=== PATIENT | male | born 1950 | race Caucasian/White ===

== ENCOUNTER 2017-02-22 11:06 | Emergency (ER) | payer MEDICARE ==
[~2017-02-22] VITALS: Ht 185.4 cm; Wt 115.0 kg
[~2017-02-22 11:06] MED LIST: COUM1TAB PO; ZOLP10TA3 OR
[2017-02-22 11:09] VITALS: BP 148/68; PULSE 84; RESP 24; TEMP 98.3; O2SAT 97
--- NOTE | 2017-02-22 11:22 | PD ---
HPI Chief Complaint: Respiratory Symptoms Time Seen by Provider: 11:22 Travel History International Travel<30 days: No Contact w/Intl Traveler<30days: No Traveled to known affect area: No History of Present Illness HPI 67-year-old male came to the emergency room with his because he's been short of breath. Patient said the shortness of breath started last night. He had an ablation for his A. fib done at [facility] yesterday by Dr. Weinberg. However since he lives closer to [place] who recommended that he should come to [facility] emergency room. No history of chest pain. Patient said last night and took his son's inhaler after which she felt little better. No history of fever or chills. No history of cough. He said he got short of breath upon ambulation and has been taking shallow breaths. His vitals were relatively stable. Patient says he needs Lasix. He is not on Lasix at home. [facility] Past Medical History Narrative Medical List of his past medical, surgical, social and family history is reviewed from the nursing note. Depression: Yes Cancer: No Cardiovascular Problems: Yes (a-fib) Diabetes: No Diminished Hearing: No Endocrine: No GERD: Yes Genitourinary: No Hepatitis: No Hiatal Hernia: No Immune Disorder: No Musculoskeletal: Yes (neck issues with the chiropractor) Neurologic: No Psychiatric: No Reproductive: No Respiratory: No Thyroid Disease: No Past Surgical History Abdominal Surgery: Yes (duodenal polyops) AICD: No Body Medical Devices: hardware left foot arch area Joint Replacement: No Pacemaker: No Social History Alcohol Use: Yes (DAILY GLASS OF WINE) Tobacco Use: No Substance Use: No Allergies-Medications (Allergen,Severity, Reaction): Coded Allergies: No Known Allergies (Verified , 02/22/17) Comments No known drug allergies. Reported Meds & Prescriptions Reported Meds & Active Scripts Active Potassium Chloride ER (Potassium Chloride) 20 Meq Tab 20 Meq PO BID Lasix (Furosemide) 40 Mg Tab 40 Mg PO DAILY Reported Coumadin 1 mg (Warfarin Sodium) Warfarin Sodium 1 mg Tab 5 Mg PO BID last dose was november 11 Zolpidem Tartrate 10 Mg Tab 10 Mg OR HS Narrative Medication List of his home medications reviewed from the nursing note. Review of Systems Except as stated in HPI: all other systems reviewed are Neg Physical Exam Narrative GENERAL: Awake, alert, moderate distress SKIN: Focused skin assessment warm/dry. HEAD: Atraumatic. Normocephalic. EYES: Pupils equal and round. No scleral icterus. No injection or drainage. ENT: No nasal bleeding or discharge. Mucous membranes pink and moist. NECK: Trachea midline. No JVD. CARDIOVASCULAR: Regular rate and rhythm. No murmur appreciated. RESPIRATORY: Tachypnea. Clear to auscultation. Breath sounds equal bilaterally. GASTROINTESTINAL: Abdomen soft, non-tender, nondistended. Hepatic and splenic margins not palpable. MUSCULOSKELETAL: No obvious deformities. No clubbing. No cyanosis. No edema. NEUROLOGICAL: Awake and alert. No obvious cranial nerve deficits. Motor grossly within normal limits. Mild bilateral pedal edema PSYCHIATRIC: Appropriate mood and affect; insight and judgment normal. Data Data Last Documented VS Orders Orders Complete Blood Count With Diff (02/22/17 11:29) Basic Metabolic Panel (Bmp) (02/22/17 11:29) B-Type Natriuretic Peptide (02/22/17 11:29) Iv Access Insert/Monitor (02/22/17 11:29) Electrocardiogram (02/22/17 11:29) Ecg Monitoring (02/22/17 11:29) Oximetry (02/22/17 11:29) Oxygen Administration (02/22/17 11:29) Chest, Single Ap (02/22/17 11:29) Sodium Chloride 0.9% Flush (Ns Flush) (02/22/17 11:30) Furosemide Inj (Lasix Inj) (02/22/17 13:00) Potassium Chloride (Kcl) (02/22/17 13:45) Labs Laboratory Tests Test 02/22/17 11:50 White Blood Count 12.5 TH/MM3 Red Blood Count 3.64 MIL/MM3 Hemoglobin 13.7 GM/DL Hematocrit 39.9 % Mean Corpuscular Volume 109.6 FL Mean Corpuscular Hemoglobin 37.8 PG Mean Corpuscular Hemoglobin Concent 34.4 % Red Cell Distribution Width 15.2 % Platelet Count 137 TH/MM3 Mean Platelet Volume 7.9 FL Neutrophils (%) (Auto) 72.9 % Lymphocytes (%) (Auto) 10.9 % Monocytes (%) (Auto) 16.0 % Eosinophils (%) (Auto) 0.1 % Basophils (%) (Auto) 0.1 % Neutrophils # (Auto) 9.1 TH/MM3 Lymphocytes # (Auto) 1.4 TH/MM3 Monocytes # (Auto) 2.0 TH/MM3 Eosinophils # (Auto) 0.0 TH/MM3 Basophils # (Auto) 0.0 TH/MM3 CBC Comment DIFF FINAL Differential Comment Blood Urea Nitrogen 13 MG/DL Creatinine 1.16 MG/DL Random Glucose 102 MG/DL Calcium Level 8.4 MG/DL Sodium Level 134 MEQ/L Potassium Level 3.0 MEQ/L Chloride Level 100 MEQ/L Carbon Dioxide Level 23.9 MEQ/L Anion Gap 10 MEQ/L Estimat Glomerular Filtration Rate 63 ML/MIN B-Type Natriuretic Peptide 279 PG/ML MDM Medical Decision Making Medical Screen Exam Complete: Yes Emergency Medical Condition: Yes Medical Record Reviewed: Yes Interpretation(s) Twelve-lead EKG was reviewed by me. Atrial fibrillation, left axis deviation, controlled rate. Heart rate of 80 bpm. Differential Diagnosis Congestive heart failure, pleural effusion, pneumonia Narrative Course 2:21 PM blood test results of back and within acceptable limit. Chest x-rays was suggestive of some pulmonary edema. Patient was given IV Lasix. I discussed the case with Dr. Ascencio who was okay discharging the patient home if the patient is comfortable on Lasix and have him follow-up with his senior director insight on Friday. As this with the patient and he is comfortable going home. I'll discharge him home. His potassium was low which has been replaced. Procedures EKG Prior to Arrival: No Diagnosis Primary Impression: Congestive heart failure Qualified Codes: I50.9 - Heart failure, unspecified Additional Impressions: Persistent atrial fibrillation Hypokalemia Referrals: Edmundo Weinberg MD 3 days Additional Instructions: Please follow-up with Dr. Weinberg on Friday in his office. Take the medication as per the prescription direction. Return to the ER if the condition worsens or any other new concerns. Med/Other Pt SpecificInfo: Prescription(s) given Scripts Potassium Chloride ER (Potassium Chloride ER) 20 Meq Tab 20 MEQ PO BID for Electrolyte Replacement, #14 TAB 0 Refills Prov: Gunnar Kang MD 02/22/17 Furosemide (Lasix) 40 Mg Tab 40 MG PO DAILY, #7 TAB 0 Refills Prov: Gunnar Kang MD 02/22/17 Disposition: 01 DISCHARGE HOME Condition: Stable Gunnar Kang MD Feb 22, 2017 11:22
[2017-02-22] MEDS ORDERED: SODIUM CHLORIDE 0.9% FLUSH 10 ML FLUSH IVF PRN (11:30)
--- NOTE | 2017-02-22 12:31 | RADRPT ---
EXAM DATE/TIME: 02/22/2017 12:02 [place] COMPARISON: CHEST SINGLE AP, October 10, 2014, 11:34. INDICATIONS : Shortness of breath post cardiac ablation. MEDICAL HISTORY : Atrial fibrillation. SURGICAL HISTORY : Cardiac ablation 02/20/17. ENCOUNTER: Initial ACUITY: 1 day PAIN SCORE: 0/10 LOCATION: Bilateral chest FINDINGS: Portable AP view of the chest demonstrates a normal size cardiac silhouette. There is mild interstiti al prominence in the lung bases bilaterally with good inspiration. No pleural effusion or pneumothora x identified. Bones and soft tissues demonstrate no acute finding. EKG lines overlie the patient. CONCLUSION: Mild interstitial opacities in the lower lung zones bilaterally. This could represent nterstitial pul monary edema in the appropriate clinical setting. Warren Buckley MD on February 22, 2017 at 12:28 Board Certified Radiologist. This report was verified electronically.
[2017-02-22 12:35] LABS: AUTOMATED NEUTROPHIL # 9.1 TH/MM3 (1.8-7.7); BASOPHIL % 0.1 % (0.0-2.0); EOSINOPHIL % 0.1 % (0.0-4.0); HEMATOCRIT 39.9 % (39.0-51.0); HEMO FLAGS DIFF FINAL; LYMPH % 10.9 % (9.0-44.0); LYMPHOCYTE # 1.4 TH/MM3 (1.0-4.8); MEAN CELL VOLUME 109.6 FL (80.0-100.0); MEAN CORPUSCULAR HEMOGLOBIN 37.8 PG (27.0-34.0); MEAN CORPUSCULAR HGB CONC 34.4 % (32.0-36.0); NEUT % 72.9 % (16.0-70.0); PLATELET COUNT 137 TH/MM3 (150-450); RED BLOOD COUNT 3.64 MIL/MM3 (4.50-5.90); RED CELL DISTRIBUTION WIDTH 15.2 % (11.6-17.2); WHITE BLOOD COUNT 12.5 TH/MM3 (4.0-11.0)
[2017-02-22 12:54] LABS: BICARBONATE 23.9 MEQ/L (21.0-32.0)
[2017-02-22] MEDS ORDERED: FUROSEMIDE 40 MG/4 ML VIAL IV PUSH ONE (13:00)
[2017-02-22] MEDS ORDERED: POTASSIUM CHLORIDE 20 MEQ CONTROLLED RELEASE TAB PO ONE (13:45)
[2017-02-22] MEDS ORDERED: FURO1TAB60 PO (14:16)
[2017-02-22] MEDS ORDERED: POTA-163 PO (14:17)
--- NOTE | 2017-02-23 13:28 | EKG ---
Date Performed: 02/22/2017 Time Performed: 11:42:29 PTAGE: 67 years EKG: There is a first degree AV block with a PA interval of 0.40. There appears to be intermitte nt sinoatrial block with dropped P-waves. Minor nonspecific T-wave changes Sabael borderline leftward PREVIOUS TRACING : 10/10/2014 11.14 Since previous tracing, rhythm has changed from atria l fibrillation to Sinus rhythm but there is intermittent sinoatrial block. DOCTOR: Jarvis Merchant Interpretating Date/Time 02/23/2017 13:27:06
== END 2017-02-22 14:59 | disposition home or self-care (01) ==
LOC: NEPC 11:06
DX: I50.9 Heart failure, unspecified (principal); I48.1 Persistent atrial fibrillation; E87.6 Hypokalemia; R94.31 Abnormal electrocardiogram [ECG] [EKG]
CPT/HCPCS: 71010; 80048; 83880; 85025; 93005; 96374; 99285; J1940

== ENCOUNTER 2017-08-20 11:11 | Emergency (ER) | payer MEDICARE ==
[~2017-08-20] VITALS: Ht 185.4 cm; Wt 112.5 kg
[~2017-08-20 11:11] MED LIST changes: +FURO1TAB60 PO; +POTA-163 PO
[2017-08-20 11:16] VITALS: BP 147/67; PULSE 93; RESP 16; TEMP 98.3; O2SAT 98
[2017-08-20] MEDS ORDERED: ZOLP10TA3 PO (11:25)
[2017-08-20] MEDS ORDERED: [UNRECOGNIZED DRUG - OTHER] PO (11:25)
[2017-08-20] MEDS ORDERED: BENZ100 PO (11:46)
[2017-08-20] MEDS ORDERED: PRED20 PO (11:46)
[2017-08-20] MEDS ORDERED: VENTAER INH (11:46)
[2017-08-20] MEDS ORDERED: AZIT250T3 PO (11:46)
--- NOTE | 2017-08-20 11:46 | PD ---
HPI Chief Complaint: Cold / Flu Symptoms Time Seen by Provider: 11:37 Travel History International Travel<30 days: No Contact w/Intl Traveler<30days: No Traveled to known affect area: No History of Present Illness HPI Is a 67-year-old male here with productive cough 1 week. He denies fever or chills. He reports colored sputum. Symptom severity is moderate. No aggravating or alleviating factors. Similar symptoms in the past with bronchitis. PFSH Past Medical History Atrial Fibrillation: Yes (Ablation ) Depression: Yes Cancer: No Cardiovascular Problems: Yes (a-fib) Diabetes: No Diminished Hearing: No Endocrine: No Gastrointestinal Disorders: Yes (hx of one duodenal ulcer) GERD: Yes Genitourinary: No Hepatitis: No Hiatal Hernia: No Immune Disorder: No Musculoskeletal: Yes (neck issues with the chiropractor) Neurologic: No Psychiatric: No Reproductive: No Respiratory: No Thyroid Disease: No Tetanus Vaccination: > 5 Years Influenza Vaccination: No Past Surgical History Abdominal Surgery: Yes (duodenal polyops) AICD: No Body Medical Devices: hardware left foot arch area Joint Replacement: Yes (right hip) Pacemaker: No Other Surgery: Yes (left foot arch repair) Social History Alcohol Use: Yes (COUPLE GLASSES OF WINE DAILY) Tobacco Use: No Substance Use: No Allergies-Medications (Allergen,Severity, Reaction): Coded Allergies: No Known Allergies (Verified Adverse Reaction, Unknown, 08/20/17) Reported Meds & Prescriptions Reported Meds & Active Scripts Active Reported [beyond biotic] 1 Tab PO DAILY Zolpidem (Zolpidem Tartrate) 10 Mg Tab 10 Mg PO HS PRN Review of Systems Except as stated in HPI: all other systems reviewed are Neg General / Constitutional: No: Fever Eyes: No: Visual changes HENT: No: Headaches Cardiovascular: No: Chest Pain or Discomfort Respiratory: Positive: Cough Gastrointestinal: No: Abdominal Pain Genitourinary: No: Dysuria Physical Exam Narrative GENERAL: Alert well-appearing 67-year-old male SKIN: Warm and dry. HEAD: Normocephalic. EYES: No injection or drainage. NECK: Supple, trachea midline. CARDIOVASCULAR: Regular rate and rhythm RESPIRATORY: Breath sounds equal bilaterally. No accessory muscle use. Rhonchorous cough GASTROINTESTINAL: Abdomen soft, non-tender, nondistended. MUSCULOSKELETAL: No cyanosis, or edema. BACK: Nontender without obvious deformity. No CVA tenderness. Data Data Last Documented VS Vital Signs Date Time Temp Pulse Resp B/P (MAP) Pulse Ox O2 Delivery O2 Flow Rate FiO2 08/20/17 11:16 98.3 93 16 147/67 (93) 98 MDM Medical Decision Making Medical Screen Exam Complete: Yes Emergency Medical Condition: Yes Differential Diagnosis Bronchitis, pneumonia, URI Narrative Course 67-year-old male here with bronchitis. He is well-appearing. Vital signs are stable Diagnosis Primary Impression: Bronchitis Referrals: Primary Care Physician Additional Instructions: Medication as directed Stay well hydrated Follow up with her primary doctor Scripts Benzonatate (Tessalon Perles) 100 Mg Cap 200 MG PO TID Y for COUGH, #12 CAP 0 Refills Prov: Chelsea Padgett 08/20/17 Albuterol 18 GM Inh (Ventolin Hfa 18 GM Inh) 90 Mcg/Act Aer 2 PUFF INH Q4-6H Y for SHORTNESS OF BREATH, #1 INHALER 0 Refills Prov: Chelsea Padgett 08/20/17 Prednisone (Prednisone) 20 Mg Tab 40 MG PO DAILY, #10 TAB 0 Refills Take 40 mg (2 tablets) daily for 5 days Prov: Chelsea Padgett 08/20/17 Azithromycin (Azithromycin) 250 Mg Tab 250 MG PO DIRECTED for Infection, #6 TAB 0 Refills Take 2 tabs (500 mg) on day 1 then 1 tab daily x 4 days. Prov: Chelsea Padgett 08/20/17 Disposition: 01 DISCHARGE HOME Condition: Stable Chelsea Padgett Aug 20, 2017 11:46
== END 2017-08-20 11:52 | disposition home or self-care (01) ==
LOC: PHEFT 11:11
DX: J40 Bronchitis, not specified as acute or chronic (principal); I48.91 Unspecified atrial fibrillation; F32.9 Major depressive disorder, single episode, unspecified; K21.9 Gastro-esophageal reflux disease without esophagitis; Z79.899 Other long term (current) drug therapy
CPT/HCPCS: 99284

== ENCOUNTER 2017-10-07 10:16 | Emergency (ER) | payer MEDICARE ==
[2017-10-07] MEDS ORDERED: SODIUM CHLORIDE 0.9% FLUSH 10 ML FLUSH IVF (10:45)
[2017-10-07] MEDS: RESP: ALBUTEROL 2.5 MG/IPRATROPIUM 0.5 MG NEB (SCH) INH ×2 (10:48→10:50)
[2017-10-07] MEDS: methylPREDNISolone SOD SUCC 125 MG/2 ML VIAL IV PUSH (11:26)
[2017-10-07 11:33] LABS: AUTOMATED NEUTROPHIL # 4.9 TH/MM3 (1.8-7.7); BASOPHIL # 0.1 TH/MM3 (0-0.2); BASOPHIL % 1.3 % (0.0-2.0); EOSINOPHIL % 0.2 % (0.0-4.0); HEMATOCRIT 35.9 % (39.0-51.0); HEMO FLAGS DIFF FINAL; HEMOGLOBIN 12.2 GM/DL (13.0-17.0); LYMPH % 18.9 % (9.0-44.0); LYMPHOCYTE # 1.4 TH/MM3 (1.0-4.8); MEAN CELL VOLUME 103.2 FL (80.0-100.0); MEAN PLATELET VOLUME 8.2 FL (7.0-11.0); MONOCYTE # 0.8 TH/MM3 (0-0.9); NEUT % 68.6 % (16.0-70.0); PLATELET COUNT 106 TH/MM3 (150-450); RED BLOOD COUNT 3.48 MIL/MM3 (4.50-5.90); RED CELL DISTRIBUTION WIDTH 14.5 % (11.6-17.2); WHITE BLOOD COUNT 7.2 TH/MM3 (4.0-11.0)
[2017-10-07 12:23] LABS: CHLORIDE 96 MEQ/L (98-107); SODIUM (NA) 132 MEQ/L (136-145)
[2017-10-07 12:24] LABS: POTASSIUM 3.2 MEQ/L (3.5-5.1)
[2017-10-07 12:26] LABS: CALCIUM 8.4 MG/DL (8.5-10.1)
[2017-10-07 12:27] LABS: ALBUMIN 2.7 GM/DL (3.4-5.0); ANION GAP 14 MEQ/L (5-15); BICARBONATE 22.2 MEQ/L (21.0-32.0); BLOOD UREA NITROGEN 6 MG/DL (7-18); GLUCOSE,RANDOM 116 MG/DL (74-106)
[2017-10-07 12:30] LABS: ALT (GPT) 75 U/L (12-78); AST (GOT) 211 U/L (15-37); GLOMERULAR FILTRATION RATE 67 ML/MIN (>89)
[2017-10-07 12:32] LABS: TOTAL BILIRUBIN ADULT 2.6 MG/DL (0.2-1.0); TOTAL PROTEIN 8.3 GM/DL (6.4-8.2)
[2017-10-07 12:33] LABS: ALKALINE PHOSPHATASE 224 U/L (45-117)
[2017-10-07 12:40] LABS: B-TYPE NATRIURETIC PEPTIDE 47 PG/ML (0-100)
[2017-10-07] MEDS: POTASSIUM CHLORIDE 20 MEQ CONTROLLED RELEASE TAB PO (13:27)
== END 2017-10-07 13:33 | disposition home or self-care (01) ==
LOC: PHEFT 10:16
DX: R05 Cough (principal); I48.91 Unspecified atrial fibrillation; K74.60 Unspecified cirrhosis of liver; I44.4 Left anterior fascicular block; R94.31 Abnormal electrocardiogram [ECG] [EKG]; I50.9 Heart failure, unspecified; K21.9 Gastro-esophageal reflux disease without esophagitis; F32.9 Major depressive disorder, single episode, unspecified; Z79.82 Long term (current) use of aspirin
CPT/HCPCS: 71045; 80053; 83880; 85025; 87804; 87804-59; 93005; 94640; 94664; 96374; 99285-25